=== PATIENT | male | born 1975 | race Caucasian/White ===

== ENCOUNTER 2016-09-05 16:17 | Emergency (ER) | payer OTHER | END 2016-09-05 18:39 | disposition home or self-care (01) | LOC: FER 16:17 | DX: S92.352A Displaced fracture of fifth metatarsal bone, left foot, initial encounter for closed fracture (principal); I10 Essential (primary) hypertension; E11.9 Type 2 diabetes mellitus without complications; W01.0XXA Fall on same level from slipping, tripping and stumbling without subsequent striking against object, initial encounter | CPT/HCPCS: 73610; 73630; 99283 ==

== ENCOUNTER 2020-07-27 19:55 | Emergency (ER) | payer OTHER ==
[~2020-07-27 19:55] MED LIST: BASAGLAR K100 UNIT/1 SC; HUMALOG100 UNIT/1 SC; HUMULIN R100 UNIT/2 SC; IBUPROFEN800 MG PO; MOTRIN600 MG PO; PERCOCET 5-3251 EACH PO; ROBAXIN750 MG PO
[2020-07-27] MEDS ORDERED: BACTRIM DS TAB1 EACH PO (21:02)
[2020-07-27] MEDS ORDERED: TRAMADOL HCL50 MG PO (21:02)
== END 2020-07-27 21:12 | disposition home or self-care (01) ==
LOC: FER 19:55
DX: M20.41 Other hammer toe(s) (acquired), right foot (principal); L03.032 Cellulitis of left toe; L03.031 Cellulitis of right toe; E11.9 Type 2 diabetes mellitus without complications; H54.7 Unspecified visual loss
CPT/HCPCS: 73660